=== PATIENT | female | born 1965 | race African-American/Black ===

== ENCOUNTER 2017-09-10 14:23 | Emergency (ER) | payer SELFPAY ==
[~2017-09-10] VITALS: Ht 172.7 cm; Wt 92.0 kg
[2017-09-10] MEDS ORDERED: KETOROLAC 30MG/ML VIAL IM ONE (15:00)
[2017-09-10] MEDS ORDERED: METHOCARBAMOL 500MG TABLET PO ONE (15:15)
[2017-09-10 16:35] VITALS: BP 139/81
== END 2017-09-10 17:12 | disposition home or self-care (01) ==
LOC: ER 14:38
DX: S13.4XXA Sprain of ligaments of cervical spine, initial encounter (principal); F17.210 Nicotine dependence, cigarettes, uncomplicated; V43.62XA Car passenger injured in collision with other type car in traffic accident, initial encounter; Y93.89 Activity, other specified; Y92.488 Other paved roadways as the place of occurrence of the external cause
CPT/HCPCS: 96372; 99283; J1885